=== PATIENT | female | born 1950 | race Hispanic/Latino ===

== ENCOUNTER 2022-01-13 19:17 | Emergency (ER) | payer MEDICARE, OTHER ==
[2022-01-13] MEDS ORDERED: Ondansetron PF 4 MG/2 ML Vial ONE (21:39)
[2022-01-13 22:12] LABS: Bilirubin Neg (Negative); Blood, Urine Negative (Negative); Clarity Clear (Clear); Glucose, Urine (Dipstick) Normal (Negative); Ketone, Urine Negative (Negative); Leukocyte 25 (Negative); Nitrite Negative (Negative); Protein, Urine (Dipstick) Negative (Neg-Trace); Specific Gravity, Urine 1.005 (1.005-1.030); Urobilinogen Normal mg/dL (Less than 2)
[2022-01-13 22:26] LABS: Bacteria/HPF None Seen HPF (None Seen); RBC/HPF 0-3 HPF (0-3); Squamous Epithelial 0-3 HPF (0-3); WBC/HPF 0-3 HPF (0-3)
[2022-01-13 22:33] LABS: #Eosinphils 0.1 10x3/uL (0.0-0.5); #Monocytes 0.5 10x3/uL (0.0-1.1); #Neutrophils 3.7 10x3/uL (1.5-8.4); %Basophils 0.7 % (0.0-2.0); %Lymphocytes 26.1 % (18.0-47.0); %Monocytes 8.2 % (0.0-10.0); %Neutrophils 62.8 % (40.0-75.0); Hemoglobin 10.8 g/dL (12.0-15.5); Mean Corpuscular HGB CONC 34.6 g/dL (32.0-36.0); Mean Corpuscular Volume 83.6 fl (81.6-98.3); Mean Platelet Volume 11.3 fl (7.4-10.4); Platelet Count 229 10x3/uL (150-450); RBC Distribution Width 13.3 % (11.5-14.5); Red Blood Cell (RBC) Count 3.73 10x6/uL (3.90-5.03); White Blood Cell (WBC) Count 5.9 10x3/uL (3.5-10.5)
[2022-01-13 22:50] LABS: ALT (SGPT) 9 U/L (8-55); AST (SGOT) 13 U/L (5-34); Albumin 5.1 g/dL (3.4-4.8); Alkaline Phosphatase 50 U/L (40-110); Anion Gap 18 mmol/L (10-20); BUN (Urea Nitrogen) 19 mg/dL (9.8-20.1); Bilirubin, Total 0.6 mg/dL (0.2-1.2); CK (CPK) 31 U/L (29-168); Calc. Creatinine Clearance 0 mL/min (70-130); Calcium 10.6 mg/dL (7.8-10.44); Carbon Dioxide 23 mmol/L (23-31); Chloride 94 mmol/L (98-107); Estimated GFR 59; Globulin 2.6 g/dL (2.4-3.5); Glucose 117 mg/dL (83-110); Magnesium 1.7 mg/dL (1.6-2.6); Potassium 4.8 mmol/L (3.5-5.1); Protein, Total 7.7 g/dL (5.8-8.1); Sodium 130 mmol/L (136-145)
== END 2022-01-14 00:13 | disposition home or self-care (01) ==
LOC: CSHERS 19:17
DX: R53.83 Other fatigue (principal); R11.0 Nausea; E11.9 Type 2 diabetes mellitus without complications; I10 Essential (primary) hypertension
CPT/HCPCS: 71045; 80053; 81003; 81015; 82550; 83735; 84484; 85025; 93005; 96361; 96374; J2405

== ENCOUNTER 2022-02-05 13:40 | Observation (INO) | payer OTHER ==
[2022-02-05 14:46] LABS: #Eosinphils 0.1 10x3/uL (0.0-0.5); #Monocytes 0.4 10x3/uL (0.0-1.1); #Neutrophils 4.9 10x3/uL (1.5-8.4); %Basophils 0.2 % (0.0-2.0); %Eosinophils 0.8 % (0.0-6.0); %Monocytes 6.8 % (0.0-10.0); %Neutrophils 82.9 % (40.0-75.0); Hemoglobin 9.5 g/dL (12.0-15.5); Mean Corpuscular HGB CONC 34.4 g/dL (32.0-36.0); Mean Corpuscular Hemoglobin 28.6 pg (27.0-33.0); Mean Corpuscular Volume 83.1 fl (81.6-98.3); Mean Platelet Volume 11.2 fl (7.4-10.4); Platelet Count 169 10x3/uL (150-450); RBC Distribution Width 13.5 % (11.5-14.5); Red Blood Cell (RBC) Count 3.32 10x6/uL (3.90-5.03); White Blood Cell (WBC) Count 5.9 10x3/uL (3.5-10.5)
[2022-02-05 15:08] LABS: ALT (SGPT) 9 U/L (8-55); AST (SGOT) 12 U/L (5-34); Albumin 4.3 g/dL (3.4-4.8); Alkaline Phosphatase 37 U/L (40-110); Anion Gap 14 mmol/L (10-20); BUN (Urea Nitrogen) 17 mg/dL (9.8-20.1); Bilirubin, Total 0.7 mg/dL (0.2-1.2); Calc. Creatinine Clearance 0 mL/min (70-130); Calcium 9.2 mg/dL (7.8-10.44); Carbon Dioxide 20 mmol/L (23-31); Chloride 93 mmol/L (98-107); Estimated GFR 53; Globulin 2.4 g/dL (2.4-3.5); Glucose 205 mg/dL (83-110); Lipase 11 U/L (8-78); Potassium 4.1 mmol/L (3.5-5.1); Protein, Total 6.7 g/dL (5.8-8.1); Sodium 123 mmol/L (136-145)
[2022-02-05 16:26] LABS: Bilirubin Neg (Negative); Blood, Urine Negative (Negative); Clarity Clear (Clear); Glucose, Urine (Dipstick) Normal (Negative); Ketone, Urine Negative (Negative); Leukocyte Negative (Negative); Nitrite Negative (Negative); Protein, Urine (Dipstick) Negative (Neg-Trace); Specific Gravity, Urine 1.005 (1.005-1.030); Urobilinogen Normal mg/dL (Less than 2)
[2022-02-05] MEDS ORDERED: Ondansetron PF 4 MG/2 ML Vial ONE (17:31)
[2022-02-05 18:56] LABS: Lactic Acid 0.8 mmol/L (0.5-2.2)
[2022-02-05] MEDS ORDERED: Calcium Carbonate 500 MG ChewTAB PO PRN (21:25)
[2022-02-05] MEDS ORDERED: Zolpidem Tartrate 5 MG TAB PO PRN (21:25)
[2022-02-05] MEDS ORDERED: Ondansetron PF 4 MG/2 ML Vial IVP PRN (21:25)
[2022-02-05] MEDS ORDERED: Acetaminophen 325 MG TAB PO PRN (21:25)
[2022-02-05] MEDS ORDERED: Guaifenesin DM 100-10/5 ML UDCUP PO PRN (21:25)
[2022-02-05 21:34] LABS: SARS-CoV-2 NAA Rapid Test Not Detected (NotDetected)
[2022-02-05] MEDS ORDERED: Diphenoxylate HCl/Atropine Tablet PO SCH (21:45)
[2022-02-05 22:18] VITALS: BMI 24.2
[2022-02-05 23:11] LABS: Anion Gap 16 mmol/L (10-20); BUN (Urea Nitrogen) 14 mg/dL (9.8-20.1); Calc. Creatinine Clearance 44 mL/min (70-130); Calcium 9.4 mg/dL (7.8-10.44); Carbon Dioxide 21 mmol/L (23-31); Chloride 99 mmol/L (98-107); Estimated GFR 60; Glucose 182 mg/dL (83-110); Potassium 4.9 mmol/L (3.5-5.1); Sodium 131 mmol/L (136-145)
[2022-02-06] MEDS: Mycophenolate 250 MG CAP PO SCH ×3 (00:34→21:06)
[2022-02-06] MEDS: Tacrolimus 0.5 MG CAP PO SCH ×3 (00:35→21:07)
[2022-02-06] MEDS: Tacrolimus 1 MG CAP PO SCH ×3 (00:35→21:06)
[2022-02-06] MEDS ORDERED: Amlodipine 5 MG TAB PO SCH (01:00)
[2022-02-06 04:58] LABS: #Monocytes 0.4 10x3/uL (0.0-1.1); #Neutrophils 2.3 10x3/uL (1.5-8.4); %Basophils 0.6 % (0.0-2.0); %Eosinophils 1.2 % (0.0-6.0); %Lymphocytes 16.8 % (18.0-47.0); %Monocytes 11.4 % (0.0-10.0); %Neutrophils 69.7 % (40.0-75.0); Hemoglobin 9.6 g/dL (12.0-15.5); Mean Corpuscular HGB CONC 34.5 g/dL (32.0-36.0); Mean Corpuscular Hemoglobin 29.1 pg (27.0-33.0); Mean Corpuscular Volume 84.2 fl (81.6-98.3); Mean Platelet Volume 11.1 fl (7.4-10.4); Platelet Count 169 10x3/uL (150-450); RBC Distribution Width 13.5 % (11.5-14.5); White Blood Cell (WBC) Count 3.3 10x3/uL (3.5-10.5)
[2022-02-06 05:08] LABS: Anion Gap 14 mmol/L (10-20); BUN (Urea Nitrogen) 16 mg/dL (9.8-20.1); Calc. Creatinine Clearance 44 mL/min (70-130); Carbon Dioxide 21 mmol/L (23-31); Chloride 102 mmol/L (98-107); Estimated GFR 61; Glucose 167 mg/dL (83-110); Potassium 4.1 mmol/L (3.5-5.1); Sodium 133 mmol/L (136-145)
[2022-02-06] MEDS: Levothyroxine Sodium 125 MCG TAB PO SCH (07:43)
[2022-02-06] MEDS: Cholecalciferol 1,000 UNITS (25 MCG) TAB PO SCH (08:55)
[2022-02-06] MEDS: Amlodipine 5 MG TAB PO SCH (08:55)
[2022-02-06] MEDS: metFORMIN 500 MG TAB PO SCH ×2 (08:55→20:58)
[2022-02-06] MEDS: Multivitamin W/ Minerals 1 TAB PO SCH (08:55)
[2022-02-06] MEDS: Carvedilol 6.25 MG TAB PO SCH ×2 (08:55→20:59)
[2022-02-06] MEDS: Aspirin 81 mg Enteric Coated Tablet PO SCH (08:55)
[2022-02-06] MEDS ORDERED: Dextrose 5% in Water 1,000 ML IV SCH (09:15)
[2022-02-06] MEDS ORDERED: FLU VACC QS2022-23(65YR UP)/PF 240 MCG/0.7 ML SYRINGE IM ONE (12:15)
[2022-02-06 12:48] LABS: Potassium, Urine 14.1 mmol/L; Sodium, Urine Less than 20 mmol/L (Not Available)
[2022-02-06 14:38] LABS: Sodium 130 mmol/L (136-145)
[2022-02-07] MEDS: Levothyroxine Sodium 125 MCG TAB PO SCH (07:04)
[2022-02-07] MEDS ORDERED: Amlodipine 5 MG TAB PO SCH (09:00)
[2022-02-07] MEDS ORDERED: Aspirin 81 mg Enteric Coated Tablet PO SCH (09:00)
[2022-02-07] MEDS ORDERED: [UNRECOGNIZED DRUG - REMARK] PO SCH (09:00)
[2022-02-07] MEDS: Cholecalciferol 1,000 UNITS (25 MCG) TAB PO SCH (09:04)
[2022-02-07] MEDS: Multivitamin W/ Minerals 1 TAB PO SCH (09:05)
[2022-02-07] MEDS: metFORMIN 500 MG TAB PO SCH (09:05)
[2022-02-07] MEDS: Aspirin 81 mg Enteric Coated Tablet PO SCH (09:08)
[2022-02-07] MEDS: Amlodipine 5 MG TAB PO SCH (09:09)
[2022-02-07] MEDS: Carvedilol 6.25 MG TAB PO SCH (09:10)
[2022-02-07 09:26] VITALS: BP 161/68
[2022-02-07 09:45] VITALS: TEMP 99.2
== END 2022-02-07 11:00 | disposition home or self-care (01) ==
LOC: CSHERS 13:40 → CSHTELE 21:25
PROVIDERS: ADMIT Student in an Organized Health Care Education/Training Program; ATTEND Hospitalist
DX: E87.1 Hypo-osmolality and hyponatremia (principal); R11.2 Nausea with vomiting, unspecified; R19.7 Diarrhea, unspecified; R53.1 Weakness; K74.60 Unspecified cirrhosis of liver; A08.4 Viral intestinal infection, unspecified; I12.9 Hypertensive chronic kidney disease with stage 1 through stage 4 chronic kidney disease, or unspecified chronic kidney disease; E11.22 Type 2 diabetes mellitus with diabetic chronic kidney disease; N18.30 Chronic kidney disease, stage 3 unspecified; K21.9 Gastro-esophageal reflux disease without esophagitis; E03.9 Hypothyroidism, unspecified; Z79.82 Long term (current) use of aspirin; Z79.84 Long term (current) use of oral hypoglycemic drugs; Z79.899 Other long term (current) drug therapy; Z20.822 Contact with and (suspected) exposure to COVID-19
CPT/HCPCS: 0240U; 80048 ×2; 81003; 82436; 82962; 83605; 83690; 83930; 83935; 84133; 84295; 84300; 85025; 96374; 99285; 36415; 36416; 80053; 84443; 96375; G0378; J2405; J7070